=== PATIENT | male | born 1980 | race Caucasian/White ===

== ENCOUNTER 2021-01-17 15:52 | Outpatient (CLI) | payer OTHER, SELFPAY ==
[2021-01-17 16:11] VITALS: BP 163/92; PULSE 108; RESP 20; TEMP 36.8; O2SAT 99
[2021-01-17] MEDS: 0.9% Saline Lock 10 ML Syringe IV (16:13)
[2021-01-17 16:44] VITALS: BP 142/78; PULSE 78; RESP 16; TEMP 36.8; O2SAT 96
[2021-01-17 17:39] VITALS: BP 132/78; PULSE 77; RESP 16; TEMP 37; O2SAT 94
== END 2021-01-17 17:44 | disposition home or self-care (01) ==
LOC: MS3OUT 15:52 → MS3 15:53
PROVIDERS: Referring Provider Nurse Practitioner Adult Health; Visit Provider Nurse Practitioner Adult Health
DX: Z23 Encounter for immunization (principal); U07.1 COVID-19
CPT/HCPCS: J7050; M0245; Q0245; A4216